=== PATIENT | male | born 1950 | race Caucasian/White ===

== ENCOUNTER → 2016-03-24 | Outpatient (CLI) | payer BC ==
[~2016-03-24] MED LIST: ACET-1256 PO; ATEN-173 PO; CHOL2000 PO; CYAN100020 PO; PRT/20 PO; TADA10TA PO
== END | disposition home or self-care (01) ==
LOC: C.LAB 11:17
PROVIDERS: ATTEND Urology
DX: C61 Malignant neoplasm of prostate (principal)

== ENCOUNTER → 2016-08-20 | Outpatient (CLI) | payer BC ==
[2016-08-20 12:35] LABS: ALT/SGPT 46 U/L (12-78); AST/SGOT 26 U/L (15-37); BLOOD UREA NITROGEN 11 mg/dl (7-18); BUN/CREATININE RATIO 10.9 (10-20); CALCIUM 8.8 mg/dl (8.5-10.1); CARBON DIOXIDE 28 mmol/L (21-32); CHLORIDE 107 mmol/L (98-107); CREATININE 0.97 mg/dl (0.60-1.40); GLUCOSE 95 mg/dl (70-99); SODIUM 140 mmol/L (136-145)
[2016-08-20 12:40] LABS: ALB/GLOB RATIO 1.1 (0.9-2); ALKALINE PHOSPHATASE 58 U/L (45-117); PROSTATE SPECIFIC ANTIGEN 0.411 ng/ml (0.000-4.000)
== END | disposition home or self-care (01) ==
LOC: C.LAB 11:26
PROVIDERS: ATTEND Pediatrics
DX: I10 Essential (primary) hypertension (principal); C61 Malignant neoplasm of prostate

== ENCOUNTER → 2017-01-12 | Outpatient (CLI) | payer BC | END | disposition home or self-care (01) | LOC: C.LAB 07:44 | PROVIDERS: ATTEND Urology | DX: C61 Malignant neoplasm of prostate (principal) ==